=== PATIENT | male | born 1990 | race Caucasian/White ===

== ENCOUNTER → 2023-03-19 16:14 | Outpatient (BNVA) | payer OTHER, SELFPAY | PROVIDERS: Family Provider Nurse Practitioner; Visit Provider Nurse Practitioner Family | DX: R50.9 Fever, unspecified (principal); J40 Bronchitis, not specified as acute or chronic | CPT/HCPCS: 87426 ==

== ENCOUNTER 2024-09-11 21:23 | Emergency (ER) | payer SELFPAY ==
[2024-09-11 21:24] VITALS: BP 112/86; PULSE 112; RESP 18; TEMP 36.7; O2SAT 97; BMI 35.4
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
[2024-09-11] MEDS: morphine 4 mg/mL SDV 1 mL IM (22:32)
[2024-09-11 23:02] VITALS: BP 152/91; PULSE 96; RESP 14; O2SAT 99
== END 2024-09-11 23:03 | disposition home or self-care (01) ==
PROVIDERS: Emergency Provider Physician Assistant
DX: S63.501A Unspecified sprain of right wrist, initial encounter (principal); S09.8XXA Other specified injuries of head, initial encounter; S13.9XXA Sprain of joints and ligaments of unspecified parts of neck, initial encounter; V89.2XXA Person injured in unspecified motor-vehicle accident, traffic, initial encounter; F17.220 Nicotine dependence, chewing tobacco, uncomplicated
CPT/HCPCS: 70450; 72125; 73110; 73130; 73552; 96372; 99284; J2270